=== PATIENT | male | born 1965 | race Caucasian/White ===

== ENCOUNTER → 2017-02-22 | Outpatient (CLI) | payer OTHER, BC ==
[~2017-02-22] MED LIST: ANUSOL-HC2.5% RC; CENTRUM SILVER1 EACH PO; HUMALOG100 U/ML SC; LEVITRA20 MG PO; VERAMYST27.5 MCG/A NS; VOLTAREN-XR100 M1 PO
== END ==
LOC: LAB 10:04
DX: Z00.00 Encounter for general adult medical examination without abnormal findings (principal); E10.9 Type 1 diabetes mellitus without complications; G47.33 Obstructive sleep apnea (adult) (pediatric); R41.3 Other amnesia

== ENCOUNTER → 2017-07-19 | Outpatient (CLI) | payer OTHER, BC ==
[2016-05-28 11:37] VITALS: BP 124/76
== END ==
LOC: RAD 16:24
DX: M25.532 Pain in left wrist (principal)

== ENCOUNTER → 2018-01-17 | Outpatient (CLI) | payer BC ==
[~2018-01-17] VITALS: Ht 180.3 cm; Wt 90.0 kg
[~2018-01-17] MED LIST changes: +FLUTICASON0.05 MG/AC NS; -VERAMYST27.5 MCG/A NS
[2018-01-17 10:43] VITALS: BP 133/69
--- NOTE | 2018-01-17 11:08 | NUR ---
Karime EARLY APRN AT [facility].
[2018-01-17 11:14] LABS: HEMATOCRIT 42.4 % (42.0-52.0); HEMOGLOBIN 14.2 g/dL (13.5-18.0); MEAN CELL VOLUME 93 fl (78-100); MEAN CORPUSCULAR HEMOGLOBIN 31 pg (27-31); MEAN CORPUSCULAR HGB CONC 34 g/dL (33-37); MEAN PLATELET VOLUME 8.7 fl (7.4-10.4); PLATELET COUNT 179 K/mm3 (130-400); RED BLOOD COUNT 4.56 M/mm3 (4.20-5.60); RED CELL DISTRIBUTION WIDTH 12.3 % (11.5-14.5); WHITE BLOOD COUNT 2.6 K/mm3 (4.8-10.8)
[2018-01-17 11:21] LABS: ALBUMIN 3.8 g/dL (3.5-5.0); BUN/CREATININE RATIO 23.6 (6.0-26.0); CALCIUM 8.8 mg/dL (8.4-10.2); TOTAL BILIRUBIN 0.2 mg/dL (0.2-1.3); TOTAL PROTEIN 6.8 g/dL (6.3-8.2)
[2018-01-17 11:42] LABS: LYMPHOCYTE 45 % (20-51); MONOCYTE 20 % (3-10); NEUTROPHILS 33 % (42-75)
== END ==
LOC: AMSURD 10:38
PROVIDERS: Nurse Practitioner Family
DX: R07.89 Other chest pain (principal); E10.9 Type 1 diabetes mellitus without complications; M79.602 Pain in left arm; Z88.0 Allergy status to penicillin

== ENCOUNTER → 2019-04-30 | Outpatient (CLI) | payer BC ==
[2018-10-21 17:36] VITALS: BP 123/71
[~2019-04-30] MED LIST changes: +AMBIEN5 M1 PO; +FIBER GUMMIES1 EACH PO; +MULTIVITAMIN1 SGL PO; +NOVOLOG 100U100 U/ML SQ; +OCUVITE ADULT1 EACH PO
[2019-04-30 10:34] LABS: EOS # 0.1 (0.04-0.40); EOS % 1.9 % (0.0-4.0); HEMOGLOBIN 15.2 g/dL (13.5-18.0); LYMPH# 1.1 (1.50-4.00); MEAN CELL VOLUME 93 fl (78-100); MEAN CORPUSCULAR HEMOGLOBIN 31 pg (27-31); MEAN CORPUSCULAR HGB CONC 34 g/dL (33-37); MEAN PLATELET VOLUME 8.6 fl (7.4-10.4); MONO # 0.5 (0.20-0.80); NEU # 3.1 (1.40-6.50); PLATELET COUNT 205 K/mm3 (130-400); RED BLOOD COUNT 4.86 M/mm3 (4.20-5.60); RED CELL DISTRIBUTION WIDTH 12.1 % (11.5-14.5); WHITE BLOOD COUNT 4.8 K/mm3 (4.8-10.8)
[2019-04-30 11:11] LABS: CALCIUM 9.5 mg/dL (8.3-10.5); POTASSIUM 4.1 mmol/L (3.5-5.1); TOTAL BILIRUBIN 0.3 mg/dL (0.2-1.2); TOTAL PROTEIN 6.7 g/dL (6.4-8.3)
[2019-04-30 11:42] LABS: ERYTHROCYTE SEDIMENTATION RATE 2 mm/hr (0-20)
[2019-04-30 11:44] LABS: URINE APPEARANCE CLEAR; URINE COLOR YELLOW
[2019-04-30 11:45] LABS: URINE BILIRUBIN NORM (NEGATIVE); URINE BLOOD NEGATIVE (NEGATIVE); URINE KETONE NEGATIVE (NEGATIVE); URINE NITRATE NEGATIVE (NEGATIVE); URINE PROTEIN(semi-quant) NEGATIVE (NEGATIVE)
[2019-04-30 11:46] LABS: URINE LEUKOCYTE ESTERASE NEGATIVE (NEGATIVE); URINE MUCUS PRESENT (NOT PRESENT); URINE WBC 0-1 /hpf (0-3)
[2019-04-30 11:49] LABS: URINE UROBILINOGEN NORMAL (NORMAL)
== END ==
LOC: LAB 10:20
PROVIDERS: Internal Medicine
DX: Z00.00 Encounter for general adult medical examination without abnormal findings (principal); Z12.5 Encounter for screening for malignant neoplasm of prostate; E10.9 Type 1 diabetes mellitus without complications

== ENCOUNTER → 2019-12-03 | Outpatient (CLI) | payer BC ==
[2018-10-21 17:36] VITALS: BP 123/71
[2019-12-03 12:44] LABS: EOS # 0.1 (0.04-0.40); EOS % 1.8 % (0.0-4.0); HEMATOCRIT 46.4 % (42.0-52.0); HEMOGLOBIN 15.9 g/dL (13.5-18.0); LYMPH# 1.4 (1.50-4.00); MEAN CELL VOLUME 91 fl (78-100); MEAN CORPUSCULAR HEMOGLOBIN 31 pg (27-31); MEAN CORPUSCULAR HGB CONC 34 g/dL (33-37); MEAN PLATELET VOLUME 8.6 fl (7.4-10.4); MONO # 0.5 (0.20-0.80); NEU # 2.6 (1.40-6.50); PLATELET COUNT 221 K/mm3 (130-400); RED BLOOD COUNT 5.12 M/mm3 (4.20-5.60); WHITE BLOOD COUNT 4.5 K/mm3 (4.8-10.8)
[2019-12-03 13:19] LABS: ALBUMIN 4.4 g/dL (3.5-5.0); POTASSIUM 4.4 mmol/L (3.5-5.1)
[2019-12-03 13:21] LABS: CALCIUM 9.7 mg/dL (8.3-10.5)
[2019-12-03 13:22] LABS: TOTAL PROTEIN 7.3 g/dL (6.4-8.3)
[2019-12-03 13:24] LABS: TOTAL BILIRUBIN 0.5 mg/dL (0.2-1.2)
[2019-12-03 13:28] LABS: MAGNESIUM 2.02 mg/dL (1.60-2.60)
[2019-12-03 13:40] LABS: URINE APPEARANCE CLEAR; URINE BILIRUBIN NEGATIVE (NEGATIVE); URINE BLOOD NEGATIVE (NEGATIVE); URINE COLOR LIGHT YELLOW; URINE GLUCOSE NEGATIVE (NEGATIVE); URINE KETONE NEGATIVE (NEGATIVE); URINE LEUKOCYTE ESTERASE NEGATIVE (NEGATIVE); URINE NITRATE NEGATIVE (NEGATIVE); URINE PROTEIN(semi-quant) NEGATIVE (NEGATIVE); URINE UROBILINOGEN NORMAL (NORMAL); URINE WBC 0-1 /hpf (0-3)
[2019-12-03 14:06] LABS: ERYTHROCYTE SEDIMENTATION RATE 3 mm/hr (0-20)
[2019-12-03 22:34] LABS: CREATININE OTHER SOURCE 42 mg/dL (())
== END ==
LOC: LAB 12:28
PROVIDERS: Internal Medicine
DX: Z00.00 Encounter for general adult medical examination without abnormal findings (principal); M25.512 Pain in left shoulder; Z12.5 Encounter for screening for malignant neoplasm of prostate

== ENCOUNTER → 2020-11-07 | Outpatient (CLI) | payer BC ==
[2018-10-21 17:36] VITALS: BP 123/71
[2020-11-07 15:48] LABS: URINE APPEARANCE CLEAR; URINE BILIRUBIN NEGATIVE (NEGATIVE); URINE BLOOD NEGATIVE (NEGATIVE); URINE COLOR YELLOW; URINE GLUCOSE NEGATIVE (NEGATIVE); URINE KETONE NEGATIVE (NEGATIVE); URINE LEUKOCYTE ESTERASE NEGATIVE (NEGATIVE); URINE NITRATE NEGATIVE (NEGATIVE); URINE PROTEIN(semi-quant) NEGATIVE (NEGATIVE); URINE UROBILINOGEN NORMAL (NORMAL)
[2020-11-07 15:59] LABS: EOS # 0.1 (0.04-0.40); EOS % 1.9 % (0.0-4.0); HEMATOCRIT 45.2 % (42.0-52.0); HEMOGLOBIN 15.7 g/dL (13.5-18.0); LYMPH# 1.4 (1.50-4.00); MEAN CELL VOLUME 91 fl (78-100); MEAN CORPUSCULAR HEMOGLOBIN 32 pg (27-31); MEAN CORPUSCULAR HGB CONC 35 g/dL (33-37); MEAN PLATELET VOLUME 8.7 fl (7.4-10.4); MONO # 0.5 (0.20-0.80); NEU # 4.3 (1.40-6.50); PLATELET COUNT 212 K/mm3 (130-400); RED BLOOD COUNT 4.99 M/mm3 (4.20-5.60); RED CELL DISTRIBUTION WIDTH 11.8 % (11.5-14.5); WHITE BLOOD COUNT 6.3 K/mm3 (4.8-10.8)
[2020-11-07 16:07] LABS: ALBUMIN 4.3 g/dL (3.5-5.0); POTASSIUM 3.8 mmol/L (3.5-5.1)
[2020-11-07 16:08] LABS: CALCIUM 9.1 mg/dL (8.3-10.5)
[2020-11-07 16:10] LABS: TOTAL PROTEIN 6.8 g/dL (6.4-8.3)
[2020-11-07 16:11] LABS: TOTAL BILIRUBIN 0.3 mg/dL (0.2-1.2)
[2020-11-07 16:16] LABS: MAGNESIUM 2.2 mg/dL (1.60-2.60)
[2020-11-07 16:55] LABS: ERYTHROCYTE SEDIMENTATION RATE 3 mm/hr (0-20)
== END ==
LOC: LAB 15:28
PROVIDERS: Internal Medicine
DX: Z00.00 Encounter for general adult medical examination without abnormal findings (principal); Z12.5 Encounter for screening for malignant neoplasm of prostate; Z12.11 Encounter for screening for malignant neoplasm of colon; Z20.828 Contact with and (suspected) exposure to other viral communicable diseases

== ENCOUNTER → 2020-11-12 | Outpatient (CLI) | payer BC ==
[2018-10-21 17:36] VITALS: BP 123/71
== END ==
LOC: LAB 13:30
DX: Z12.11 Encounter for screening for malignant neoplasm of colon (principal)

== ENCOUNTER → 2021-04-21 | Outpatient (CLI) | payer BC ==
[2018-10-21 17:36] VITALS: BP 123/71
[2021-04-21 11:56] LABS: BASO # 0.03 (0.02-0.10); EOS # 0.14 (0.04-0.40); EOS % 3.3 % (0.0-4.0); HEMATOCRIT 41.9 % (42.0-52.0); HEMOGLOBIN 14.2 g/dL (13.5-18.0); LYMPH# 1.24 (1.50-4.00); MEAN CELL VOLUME 92 fl (78-100); MEAN CORPUSCULAR HEMOGLOBIN 31 pg (27-31); MEAN CORPUSCULAR HGB CONC 34 g/dL (33-37); MEAN PLATELET VOLUME 8.2 fl (7.4-10.4); MONO # 0.35 (0.20-0.80); NEU # 2.46 (1.40-6.50); PLATELET COUNT 349 K/mm3 (130-400); RED BLOOD COUNT 4.56 M/mm3 (4.20-5.60); RED CELL DISTRIBUTION WIDTH 11.3 % (11.5-14.5); WHITE BLOOD COUNT 4.2 K/mm3 (4.8-10.8)
[2021-04-21 12:04] LABS: ALBUMIN 3.9 g/dL (3.5-5.0); POTASSIUM 4.8 mmol/L (3.5-5.1)
[2021-04-21 12:05] LABS: CALCIUM 9.1 mg/dL (8.3-10.5)
[2021-04-21 12:06] LABS: TOTAL PROTEIN 6.8 g/dL (6.4-8.3)
[2021-04-21 12:08] LABS: TOTAL BILIRUBIN 0.3 mg/dL (0.2-1.2)
[2021-04-21 13:03] LABS: ERYTHROCYTE SEDIMENTATION RATE 12 mm/hr (0-20)
== END ==
LOC: LAB 11:43
PROVIDERS: Internal Medicine
DX: E10.9 Type 1 diabetes mellitus without complications (principal)

== ENCOUNTER → 2022-05-16 | Outpatient (CLI) | payer BC | LOC: RAD 12:43 | DX: M50.123 Cervical disc disorder at C6-C7 level with radiculopathy (principal); M54.6 Pain in thoracic spine ==

== ENCOUNTER → 2022-06-07 | Outpatient (CLI) | payer BC | LOC: RAD 14:16 | DX: M47.22 Other spondylosis with radiculopathy, cervical region (principal); M48.02 Spinal stenosis, cervical region ==

== ENCOUNTER → 2022-07-09 | Outpatient (CLI) | payer BC | LOC: RAD 16:54 | DX: G54.0 Brachial plexus disorders (principal) | CPT/HCPCS: A9575 ==

== ENCOUNTER → 2023-01-31 | Outpatient (CLI) | payer BC ==
[2023-01-31 15:48] LABS: ALBUMIN 4.1 g/dL (3.5-5.0); POTASSIUM 4.2 mmol/L (3.5-5.1)
[2023-01-31 15:49] LABS: CALCIUM 9.2 mg/dL (8.3-10.5)
[2023-01-31 15:51] LABS: TOTAL PROTEIN 6.2 g/dL (6.4-8.3)
[2023-01-31 15:53] LABS: TOTAL BILIRUBIN 0.3 mg/dL (0.2-1.2)
[2023-01-31 16:14] LABS: BASO # 0.02 K/mm3 (0.02-0.10); EOS % 2.3 % (0.0-4.0); HEMOGLOBIN 14.8 g/dL (13.5-18.0); LYMPH# 1.16 K/mm3 (1.50-4.00); MEAN CELL VOLUME 93 fl (78-100); MEAN CORPUSCULAR HEMOGLOBIN 32 pg (27-31); MEAN CORPUSCULAR HGB CONC 34 g/dL (33-37); MEAN PLATELET VOLUME 8.8 fl (7.4-10.4); MONO # 0.46 K/mm3 (0.20-0.80); NEU # 2.66 K/mm3 (1.40-6.50); PLATELET COUNT 190 K/mm3 (130-400); RED BLOOD COUNT 4.65 M/mm3 (4.20-5.60); RED CELL DISTRIBUTION WIDTH 11.7 % (11.5-14.5); WHITE BLOOD COUNT 4.4 K/mm3 (4.8-10.8)
== END ==
LOC: LAB 15:20
PROVIDERS: Internal Medicine
DX: Z00.00 Encounter for general adult medical examination without abnormal findings (principal); Z12.5 Encounter for screening for malignant neoplasm of prostate; E10.9 Type 1 diabetes mellitus without complications